=== PATIENT | female | born 1940 | race Caucasian/White ===

== ENCOUNTER → 2018-01-30 13:26 | Outpatient (CLI) | payer MEDICARE, BC, SELFPAY ==
--- NOTE | 2018-01-30 | DI.RAD.S_ITS ---
PROCEDURE: XR LUMBAR SPINE 2-3V INDICATIONS: SPONDYLOLISTHESIS, SPINAL STENOSIS TECHNIQUE: 3 views of the lumbar spine were acquired. COMPARISON: [facility], CR, XR LUMBAR SPINE FLEXION EXTENSION, 08/21/2017, 15:17. [facility], CR, L-SPINE 2-3 VIEWS, 11/06/2012, 16:09. FINDINGS: Bones: Posterior spinal fixation with paraspinal toby and pedicle screws from L3-L5. Residual grade 1 anterolisthesis of L3 on L4 and L4 on L5. There are also interbody cage grafts. Moderate narrowing of the L5-S1 disc space which has minimally progressed. Levocurvature centered at L1-L2. No fracture or focal osseous destruction. Hardware appears intact. There is expected postoperative alignment. Soft tissues: Overlying bowel gas pattern is normal. No suspicious soft tissue calcifications. IMPRESSION: Posterior spinal fixation from L3-L5 with paraspinal rods and pedicle screws, with interbody grafts. Expected postoperative alignment. Levocurvature centered at L1-L2. Dictated by: Jamil Cuellar M.D. on 01/30/2018 at 14:55 Approved by: Jamil Cuellar M.D. on 01/30/2018 at 14:59
== END ==
PROVIDERS: PCP Nurse Practitioner Family; Visit Provider Neurological Surgery
DX: M43.16 Spondylolisthesis, lumbar region (principal); Z98.1 Arthrodesis status
CPT/HCPCS: 72100

== ENCOUNTER → 2018-05-14 14:38 | Outpatient (CLI) | payer MEDICARE, BC, SELFPAY ==
--- NOTE | 2018-05-14 | DI.RAD.S_ITS ---
PROCEDURE: XR LUMBAR SPINE MIN 4V INDICATIONS: Spondylolisthesis, lumbar region TECHNIQUE: 5 views of the lumbar spine acquired, including flexion and extension imaging COMPARISON: [facility], CR, XR LUMBAR SPINE 2-3V, 01/30/2018, 13:14. [facility], CR, L-SPINE 2-3 VIEWS, 11/06/2012, 16:09. FINDINGS: Bones: 5 nonrib-bearing vertebrae are present. Previously present convex leftward scoliosis and grade 1 anterolisthesis of L4 on L5 is again seen. Postoperative changes of L3-L5 bilateral transverse pedicle screws and vertical fixation rods are stable over time from January of this year. Interbody disc cage prosthesis devices are present at L3-4 and L4-5, stable over time. No vertebral body compression fractures. No suspicious bony lesions. Soft tissues: Overlying bowel gas pattern is normal. No suspicious soft tissue calcifications. Flexion/extension: There is normal range of motion, with preserved normal alignment. IMPRESSION: Stable appearance of the lumbosacral spine with reference to the comparison study from January of this year and no abnormal subluxation mobility is seen during flexion and extension imaging. Rather, there is fixed grade one anterolisthesis of L4 on L5 and the bilateral posterior fixation from L3-L5 with interbody disc prosthesis material shows no abnormal mobility either. Dictated by: Juan Giraldo M.D. on 05/14/2018 at 16:28 Approved by: Juan Giraldo M.D. on 05/14/2018 at 16:30
== END ==
PROVIDERS: PCP Nurse Practitioner Family; Visit Provider Neurological Surgery
DX: M43.16 Spondylolisthesis, lumbar region (principal)
CPT/HCPCS: 72110

== ENCOUNTER → 2018-11-20 13:57 | Outpatient (CLI) | payer MEDICARE, SELFPAY ==
--- NOTE | 2018-11-20 | DI.RAD.S_ITS ---
PROCEDURE: XR LUMBAR SPINE 2-3V INDICATIONS: Spinal stenosis, lumbar region without neurogenic claudication TECHNIQUE: 2 views of the lumbar spine were acquired. COMPARISON: [facility], CR, XR LUMBAR SPINE MIN 4V, 05/14/2018, 14:49. [facility], CT, L-SPINE WITHOUT CONTRAST, 10/25/2017, 14:20. [facility], CR, XR LUMBAR SPINE 2-3V, 01/30/2018, 13:14. FINDINGS: Bones: 5 [id number]-[id number] vertebrae are present. There is [id number] levoscoliosis. There is grade 1 anterolisthesis of L3 on L4 and grade 2 anterolisthesis of L4 on L5. There is discectomy and posterior fusion at L3-L4 and L4-L5. Pedicular screws and fusion rods are intact. Alignment appears stable. No vertebral body compression fractures. No suspicious bony lesions. Soft tissues: Overlying bowel gas pattern is normal. No suspicious soft tissue calcifications. IMPRESSION: Stable degenerative and post surgical changes. Dictated by: Kenny Denise M.D. on 11/20/2018 at 17:08 Approved by: Kenny Denise M.D. on 11/20/2018 at 17:13
== END ==
PROVIDERS: PCP Nurse Practitioner Family; Visit Provider Neurological Surgery
DX: M48.061 Spinal stenosis, lumbar region without neurogenic claudication (principal); M43.16 Spondylolisthesis, lumbar region; M47.816 Spondylosis without myelopathy or radiculopathy, lumbar region; Z98.1 Arthrodesis status
CPT/HCPCS: 72100

== ENCOUNTER → 2019-02-15 14:19 | Outpatient (CLI) | payer MEDICARE, SELFPAY ==
--- NOTE | 2019-02-15 | DI.MG.S_ITS ---
BILATERAL DIGITAL SCREENING MAMMOGRAM 3D/2D WITH CAD: 02/15/2019 CLINICAL: Routine screening. Comparison is made to exams dated: 03/02/2010 mammogram and 11/06/2007 mammogram - [facility]. The tissue of both breasts is heterogeneously dense. This may lower the sensitivity of mammography. Current study was also evaluated with a Computer Aided Detection (CAD) system. No significant masses, calcifications, or other findings are seen in either breast. There has been no significant interval change. IMPRESSION: NEGATIVE There is no mammographic evidence of malignancy. A 1 year screening mammogram is recommended. This exam was interpreted at Station ID: [id number]. NOTE: For mammograms, a report in lay terms will be sent to the patient. Approximately 15% of breast malignancies will not be visualized mammographically. In the management of a palpable breast mass, a negative mammogram must not discourage biopsy of a clinically suspicious lesion. Electronically Signed By: Elin schmidt/scarlett:02/15/2019 17:13:07 letter sent: Normal Exam ACR BI-RADS Category 1: Negative 3341F
--- NOTE | 2019-02-15 14:29 | DI.CT.S_ITS ---
PROCEDURE: CT ABDOMEN PELVIS WO/W CON INDICATIONS: HEMATURIA TECHNIQUE: Optional 5 mm thick noncontrast images acquired from the diaphragm to the symphysis pubis. After the administration of intravenous contrast, 5 mm thick images acquired from the diaphragm to the symphysis pubis after a 10-minute delay. 2 mm thick coronal and sagittal reformats were then performed of the kidneys and ureters. For radiation dose reduction, the following was used: automated exposure control, adjustment of mA and/or kV according to patient size. COMPARISON: [facility], CR, XR LUMBAR SPINE 2-3V, 11/20/2018, 14:12. [facility], CT, L-SPINE WITHOUT CONTRAST, 10/25/2017, 14:20. [facility], CR, XR LUMBAR SPINE FLEXION EXTENSION, 08/21/2017, 15:17. [facility], MR, L-SPINE WITHOUT CONTRAST, 08/14/2017, 15:02. FINDINGS: Image quality: Excellent. Lung bases: Lung bases are clear. Heart size is normal. Urinary system: Both kidneys are normal in size, without hydronephrosis or nephrolithiasis. No perinephric fat stranding. There is normal bilateral renal enhancement. Small low density cortical nodules are most likely renal cysts. Renal calyces appear normal in morphology when filled with contrast. Opacified portions of both ureters demonstrate normal caliber. There is mild eccentric thickening in the right anterolateral wall of the urinary bladder.. No calcified bladder stones. Other solid organs: Liver is normal in size and enhancement. Gallbladder is normal. Biliary system is non dilated. Pancreas enhances normally. Spleen is normal in size and enhancement. No adrenal nodules. Peritoneum and bowel: Bowel loops demonstrate normal wall thickness and caliber. No free fluid or air. Nodes and vessels: No retroperitoneal or mesenteric adenopathy by size criteria. Aorta and inferior vena cava are normal in size. Abdominal wall: No ventral hernias. Pelvis: No pathologic free pelvic fluid. No inguinal hernias or adenopathy. Bones: Mild scoliosis. There is grade 1 anterolisthesis at L3-L4 and L5-L5. There is discectomy, laminectomy and posterior fusion at L3-L4 and L4-L5. There is moderate loss of disc height at L5-S1. No suspicious bony lesions. No vertebral body compression fractures. IMPRESSION: 1. Mild eccentric thickening in the right anterolateral aspect of the bladder wall. In this patient with painless microscopic hematuria, uroepithelial neoplasm cannot be excluded. Recommend cystoscopy for evaluation. 2. No renal stone hydronephrosis. 3. Small low density renal cortical nodules are most likely cysts. 4. Degenerative and postsurgical changes in lumbar spine. Dictated by: Kenny Denise M.D. on 02/15/2019 at 15:53 Approved by: Kenny Denise M.D. on 02/15/2019 at 17:50
== END ==
PROVIDERS: PCP Family Medicine; Visit Provider Family Medicine
DX: Z12.31 Encounter for screening mammogram for malignant neoplasm of breast (principal); R31.9 Hematuria, unspecified; M47.816 Spondylosis without myelopathy or radiculopathy, lumbar region; Z98.1 Arthrodesis status
CPT/HCPCS: 74178; 77063; 77067; Q9967

== ENCOUNTER → 2020-05-27 15:37 | Outpatient (CLI) | payer MEDICARE, SELFPAY ==
--- NOTE | 2020-05-27 | DI.MRI.S_ITS ---
PROCEDURE: MR LUMBAR SPINE WO/W CON INDICATIONS: Spinal stenosis, lumbar region TECHNIQUE: Noncontrast sagittal T1 spin echo and T2 fast spin echo, sagittal STIR, axial T1 and T2 fast spin echo through the lumbar spine. In cases with scoliosis, additional coronal T2 fast spin echo may be performed. After the administration of contrast, sagittal and axial T1 spin echo with fat saturation through the lumbar spine. COMPARISON: [facility], MR, L-SPINE WITHOUT CONTRAST, 08/14/2017, 15:02. [facility], CT, L-SPINE WITHOUT CONTRAST, 10/25/2017, 14:20. [facility], CR, XR LUMBAR SPINE 2-3V, 11/20/2018, 14:12. FINDINGS: Image quality: Excellent. Alignment and curvature: There is trace L2-L3 retrolisthesis. There is mild L3-L4 and L4-L5 anterolisthesis. Mild convex left scoliosis. Bones: Postsurgical changes compatible with L3-L5 PSIF. Mild reactive endplate changes noted adjacent to the L5-S1 disc. No acute vertebral body compression fractures. No suspicious marrow enhancement. Spinal cord: Conus medullaris terminates at the L1 level. Visualized spinal cord demonstrates normal signal, without suspicious enhancement. Paraspinous soft tissues: No paravertebral masses or abnormal enhancement. L1-L2: Loss of disc signal and height. Mild, diffuse disc bulge. Mild narrowing of the central canal. Mild bilateral neural foraminal narrowing. No neural compression. L2-L3: Loss of disc signal and height. Mild, diffuse disc bulge. Mild bilateral facet hypertrophy. Mild narrowing of the central canal. Mild bilateral neural foraminal narrowing. No neural compression. Fissure noted in the posterior annulus. L3-L4: Status post fusion. Bilateral facet hypertrophy. No central stenosis. Mild left neural foraminal narrowing. No neural compression. L4-L5: Status post fusion. Bilateral facet hypertrophy. No central stenosis. Severe bilateral neural foraminal narrowing with compression of the exiting L4 nerve roots. L5-S1: Loss of disc signal and height. Mild, diffuse disc bulge. Mild bilateral facet hypertrophy. Mild narrowing of the central canal. Moderate right and severe left neural foraminal narrowing with compression of the exiting left L5 nerve root. Fissures noted in the posterior annulus. IMPRESSION: 1. Status post L3-L5 fusion. 2. Multilevel degenerative disc disease. 3. Multilevel facet arthropathy. 4. Severe bilateral L4-L5 neural foraminal narrowing with compression of the exiting bilateral L4 nerve roots. Severe left L5-S1 neural foraminal narrowing with compression of the exiting left L5 nerve root. 5. L2-L3 and L5-S1 disc annulus fissures. 6. No significant central canal narrowing. 7. No suspicious postcontrast enhancement. Dictated by: Sarah Rascon MD, PhD on 05/28/2020 at 11:25 Approved by: Sarah Rascon MD, PhD on 05/28/2020 at 11:35
== END ==
PROVIDERS: Referring Provider Family Medicine; Visit Provider Family Medicine
DX: M48.062 Spinal stenosis, lumbar region with neurogenic claudication (principal); M48.07 Spinal stenosis, lumbosacral region; M51.36 Other intervertebral disc degeneration, lumbar region; M51.37 Other intervertebral disc degeneration, lumbosacral region; M47.816 Spondylosis without myelopathy or radiculopathy, lumbar region; M47.817 Spondylosis without myelopathy or radiculopathy, lumbosacral region; Z98.1 Arthrodesis status
CPT/HCPCS: 72158; A9579

== ENCOUNTER → 2020-07-03 15:03 | Outpatient (CLI) | payer MEDICARE, SELFPAY ==
--- NOTE | 2020-07-03 15:08 | DI.MG.S_ITS ---
BILATERAL DIGITAL SCREENING MAMMOGRAM 3D/2D WITH CAD: 07/03/2020 CLINICAL: Routine screening. Comparison is made to exams dated: 02/15/2019 mammogram - [facility], 03/02/2010 mammogram, and 11/06/2007 mammogram - [facility]. The tissue of both breasts is heterogeneously dense. This may lower the sensitivity of mammography. Current study was also evaluated with a Computer Aided Detection (CAD) system. No significant masses, calcifications, or other findings are seen in either breast. There has been no significant interval change. IMPRESSION: NEGATIVE There is no mammographic evidence of malignancy. A 1 year screening mammogram is recommended. This exam was interpreted at Station ID: [id number]. NOTE: For mammograms, a report in lay terms will be sent to the patient. Approximately 15% of breast malignancies will not be visualized mammographically. In the management of a palpable breast mass, a negative mammogram must not discourage biopsy of a clinically suspicious lesion. Electronically Signed By: Johnny cormier/scarlett:07/03/2020 17:09:40 letter sent: Normal Exam ACR BI-RADS Category 1: Negative 3341F
== END ==
PROVIDERS: PCP Family Medicine; Referring Provider Family Medicine; Visit Provider Family Medicine
DX: Z12.31 Encounter for screening mammogram for malignant neoplasm of breast (principal); M81.0 Age-related osteoporosis without current pathological fracture; Z78.0 Asymptomatic menopausal state; Z79.83 Long term (current) use of bisphosphonates; Z82.62 Family history of osteoporosis
CPT/HCPCS: 77063; 77067; 77080

== ENCOUNTER → 2020-12-16 12:10 | Outpatient (CLI) | payer MEDICARE, SELFPAY ==
[2020-12-16 19:56] LABS: Albumin 3.9 g/dL (3.5-5.0); Calcium 10.4 mg/dL (8.4-10.2)
[2020-12-16 20:14] LABS: Vitamin D 25 Hydroxy (D3) 27.5 ng/mL (30.0-100.0)
== END ==
PROVIDERS: PCP Family Medicine; Visit Provider Internal Medicine Endocrinology, Diabetes & Metabolism
DX: M81.0 Age-related osteoporosis without current pathological fracture (principal)
CPT/HCPCS: 82040; 82306; 82310

== ENCOUNTER → 2021-03-08 12:01 | Outpatient (CLI) | payer MEDICARE, SELFPAY ==
[2021-03-08 19:08] LABS: BUN Creatinine Ratio 25.5 (6-22); Blood Urea Nitrogen 14 mg/dL (7-17); Estimated Glomerular Filt Rate > 60.0 mL/min (>60)
== END ==
PROVIDERS: PCP Family Medicine; Visit Provider Family Medicine
DX: R30.0 Dysuria (principal); R05 Cough
CPT/HCPCS: 82565; 84520; 87077; 87086; 87186

== ENCOUNTER → 2021-03-16 11:57 | Outpatient (CLI) | payer MEDICARE, SELFPAY | PROVIDERS: PCP Family Medicine; Visit Provider Family Medicine | DX: R30.0 Dysuria (principal); R31.9 Hematuria, unspecified | CPT/HCPCS: 87086 ==

== ENCOUNTER → 2021-03-17 15:08 | Outpatient (CLI) | payer MEDICARE, SELFPAY ==
--- NOTE | 2021-03-17 15:09 | DI.CT.S_ITS ---
PROCEDURE: CT CHEST W CON INDICATIONS: Localized swelling, mass and lump, trunk. Chest Mass, Gammopathy, monoclonal. The clinical history appears to indicate that a whole-body low radiation dosed survey for myeloma had been performed and had raised concern for some form of soft tissue abnormality. A report from that study and the images from that study are not available for review. TECHNIQUE: After the administration of intravenous contrast, 5 mm thick sections acquired from the pulmonary apices to the posterior costophrenic angles. 1 mm axial lung, 5 mm thick coronal and sagittal reformats and 7 mm axial MIP were acquired. For radiation dose reduction, the following was used: automated exposure control, adjustment of mA and/or kV according to patient size. COMPARISON: [facility], CT, CT ABDOMEN PELVIS WO/W CON, 02/15/2019, 14:38. FINDINGS: Image quality: Excellent. Lungs and pleura: No acute air space opacities. No pleural effusions or pneumothorax. Central and peripheral airways are patent and normal in caliber. Mediastinum: Heart size is normal. No pericardial effusion. No mediastinal or hilar adenopathy by size criteria. Thoracic aorta and central pulmonary arteries are normal in size. Esophagus is normal in caliber. No hiatal hernia. Bones and chest wall: No suspicious bony lesions. No vertebral body compression fractures. No axillary or supraclavicular adenopathy by size criteria. Thyroid gland appears normal where well seen . Abdomen: Visualized upper abdominal solid organs appear normal. Upper abdominal bowel loops are normal in caliber. IMPRESSION: No soft tissue lesion is found, no adenopathy is seen. The marrow space visualized through this study appears normal. It would be helpful to obtain at least a report from the described outside examination that is not available for review. Ideally both a report and the images could be obtained and reviewed with reference to this study to attempt to cross correlate the area of prior concern to the current examination. Dictated by: Juan Giraldo M.D. on 03/17/2021 at 17:01 Approved by: Juan Giraldo M.D. on 03/17/2021 at 17:08
== END ==
PROVIDERS: PCP Family Medicine; Referring Provider Family Medicine; Visit Provider Family Medicine
DX: R22.2 Localized swelling, mass and lump, trunk (principal); D47.2 Monoclonal gammopathy
CPT/HCPCS: 71260; Q9967

== ENCOUNTER → 2021-04-12 08:38 | Outpatient (CLI) | payer MEDICARE, SELFPAY ==
[2021-04-12 21:08] LABS: COVID19 - ORCAS (NP or Nasal) Negative (Negative)
== END ==
PROVIDERS: PCP Family Medicine; Visit Provider Family Medicine
DX: Z20.822 Contact with and (suspected) exposure to COVID-19 (principal)
CPT/HCPCS: C9803; U0003

== ENCOUNTER → 2021-04-26 13:43 | Outpatient (CLI) | payer MEDICARE, SELFPAY ==
[2021-04-26 20:00] LABS: BUN Creatinine Ratio 35.3 (6-22); Blood Urea Nitrogen 18 mg/dL (7-17); Calcium 10.4 mg/dL (8.4-10.2); Carbon Dioxide 29 mmol/L (22-32); Chloride 96 mmol/L (98-107); Estimated Glomerular Filt Rate > 60.0 mL/min (>60); Glucose 98 mg/dL (80-110); HEMOLYSIS < 15 (0-50); Potassium 4.1 mmol/L (3.4-5.1); Sodium 129 mmol/L (137-145)
[2021-04-26 20:16] LABS: Vitamin D 25 Hydroxy (D3) 49.2 ng/mL (30.0-100.0)
== END ==
PROVIDERS: PCP Family Medicine; Visit Provider Internal Medicine Endocrinology, Diabetes & Metabolism
DX: M81.0 Age-related osteoporosis without current pathological fracture (principal)
CPT/HCPCS: 80048; 82306

== ENCOUNTER → 2021-06-03 13:31 | Outpatient (CLI) | payer MEDICARE, SELFPAY ==
[2021-06-03 18:41] LABS: Alanine Aminotransferase 16 IU/L (<35); Albumin 4.2 g/dL (3.5-5.0); Albumin Globulin Ratio 1.4 (1.0-2.8); Alkaline Phosphatase 86 U/L (38-126); Aspartate Aminotransferase 32 IU/L (14-36); Bilirubin Total 0.6 mg/dL (0.2-1.3); Blood Urea Nitrogen 18 mg/dL (7-17); Calcium 10.7 mg/dL (8.4-10.2); Carbon Dioxide 29 mmol/L (22-32); Chloride 95 mmol/L (98-107); Estimated Glomerular Filt Rate > 60.0 mL/min (>60); Glucose 88 mg/dL (80-110); HEMOLYSIS < 15 (0-50); Potassium 4.2 mmol/L (3.4-5.1); Sodium 132 mmol/L (137-145); Total Protein 7.2 g/dL (6.3-8.2)
[2021-06-07 14:34] LABS: Osmolality, Serum 281 mOsmol/kg (280-301)
== END ==
PROVIDERS: PCP Family Medicine; Visit Provider Physician Assistant
DX: B35.1 Tinea unguium (principal); E87.1 Hypo-osmolality and hyponatremia
CPT/HCPCS: 80053; 83930

== ENCOUNTER → 2021-09-10 13:42 | Outpatient (CLI) | payer MEDICARE, SELFPAY ==
[2021-09-10 19:04] LABS: Add Manual Diff / Slide Review NO; Basophils Absolute Auto 100 /uL (0-100); Basophils Percent Auto 1.2 % (0-2); Eosinophils Absolute Auto 100 /uL (0-450); Eosinophils Percent Auto 2.6 % (2-4); Hematocrit 33.9 % (36-46); Hemoglobin 11.5 g/dL (12.0-16.0); Lymphocytes Absolute Auto 1700 /uL (1100-4500); Lymphocytes Percent Auto 35.3 % (25-40); Mean Corpuscular HGB Conc 33.8 % (30-36); Mean Corpuscular Hemoglobin 32.8 PG (26-34); Mean Corpuscular Volume 97.1 fL (80-100); Monocytes Absolute Auto 800 /uL (0-900); Monocytes Percent Auto 15.5 % (3-14); Neutrophils Absolute Auto 2200 /uL (1500-7000); Neutrophils Percent Auto 45.4 % (50-75); Platelet Count 236 X10^3/uL (150-400); Red Blood Cell Count 3.49 X10^6/uL (4.0-5.2); Red Cell Distribution Width 14.4 % (11.6-14.8); White Blood Cell Count 4.9 X10^3/uL (4.5-11.0)
[2021-09-10 19:12] LABS: Alanine Aminotransferase 21 IU/L (<35); Albumin 3.8 g/dL (3.5-5.0); Albumin Globulin Ratio 1.3 (1.0-2.8); Alkaline Phosphatase 87 U/L (38-126); Aspartate Aminotransferase 32 IU/L (14-36); BUN Creatinine Ratio 35.1 (6-22); Bilirubin Total 0.5 mg/dL (0.2-1.3); Blood Urea Nitrogen 27 mg/dL (7-17); Calcium 10.9 mg/dL (8.4-10.2); Carbon Dioxide 31 mmol/L (22-32); Chloride 102 mmol/L (98-107); Estimated Glomerular Filt Rate > 60.0 mL/min (>60); Glucose 83 mg/dL (80-110); HEMOLYSIS < 15 (0-50); Potassium 4.2 mmol/L (3.4-5.1); Sodium 134 mmol/L (137-145); Total Protein 6.8 g/dL (6.3-8.2)
[2021-09-10 19:20] LABS: Appearance Urine UA CLEAR; Bilirubin Urine UA NEGATIVE (NEGATIVE); Color Urine UA YELLOW; Glucose Urine UA NEGATIVE (Negative); Ketones Urine UA NEGATIVE (NEGATIVE); Leukocyte Esterase Urine UA TRACE (NEGATIVE); Nitrite Urine UA NEGATIVE (Negative); Occult Blood Urine UA 3+ (Negative); Protein Urine UA NEGATIVE (Negative); Urobilinogen Urine UA 0.2 E.U./dL (0.2)
[2021-09-10 19:24] LABS: Sodium Urine Random 36 mmol/L (30-90)
[2021-09-10 19:26] LABS: Vitamin D 25 Hydroxy (D3) 29.4 ng/mL (30.0-100.0)
[2021-09-10 19:45] LABS: pH Urine UA 6.5 (4.5-8.0)
[2021-09-10 19:46] LABS: Bacteria Urine Occasional (0-1); Culture Indicated Urine Specimen Cultured; RBC Urine 10-30/HPF (0-5/HPF); Squamous Epithelial Cell Urine 1-5 /HPF (0-5/HPF); Transitional Epi Cells Urine 1-5/HPF (0-5/HPF); WBC Urine 1-5/HPF (0-5/HPF)
[2021-09-13 17:44] LABS: Osmolality Urine 549 mOsmol/kg (.)
== END ==
PROVIDERS: PCP Physician Assistant; Visit Provider Internal Medicine Endocrinology, Diabetes & Metabolism
DX: M81.0 Age-related osteoporosis without current pathological fracture (principal); E87.1 Hypo-osmolality and hyponatremia; R05.9 Cough, unspecified; R54 Age-related physical debility
CPT/HCPCS: 80053; 81003; 81015; 82306; 83935; 84300; 85025; 87086

== ENCOUNTER → 2021-11-01 13:08 | Outpatient (CLI) | payer MEDICARE, SELFPAY ==
[2021-11-01 19:34] LABS: Add Manual Diff / Slide Review NO; Basophils Absolute Auto 100 /uL (0-100); Basophils Percent Auto 1.2 % (0-2); Eosinophils Absolute Auto 100 /uL (0-450); Eosinophils Percent Auto 1.4 % (2-4); Hematocrit 34.3 % (36-46); Hemoglobin 11.6 g/dL (12.0-16.0); Lymphocytes Absolute Auto 1700 /uL (1100-4500); Lymphocytes Percent Auto 32.4 % (25-40); Mean Corpuscular HGB Conc 33.7 % (30-36); Mean Corpuscular Hemoglobin 33.1 PG (26-34); Mean Corpuscular Volume 98.1 fL (80-100); Monocytes Absolute Auto 800 /uL (0-900); Monocytes Percent Auto 14.1 % (3-14); Neutrophils Absolute Auto 2700 /uL (1500-7000); Neutrophils Percent Auto 50.9 % (50-75); Platelet Count 195 X10^3/uL (150-400); Red Cell Distribution Width 13.3 % (11.6-14.8); White Blood Cell Count 5.4 X10^3/uL (4.5-11.0)
[2021-11-01 19:47] LABS: Alanine Aminotransferase 22 IU/L (<35); Albumin 4.2 g/dL (3.5-5.0); Albumin Globulin Ratio 1.4 (1.0-2.8); Alkaline Phosphatase 91 U/L (38-126); Aspartate Aminotransferase 37 IU/L (14-36); BUN Creatinine Ratio 36.5 (6-22); Bilirubin Total 0.5 mg/dL (0.2-1.3); Blood Urea Nitrogen 31 mg/dL (7-17); Calcium 10.7 mg/dL (8.4-10.2); Carbon Dioxide 28 mmol/L (22-32); Chloride 98 mmol/L (98-107); Estimated Glomerular Filt Rate > 60.0 mL/min (>60); Glucose 75 mg/dL (80-110); HEMOLYSIS < 15 (0-50); Lactate Dehydrogenase 412 U/L (313-618); Potassium 4.2 mmol/L (3.4-5.1); Sodium 131 mmol/L (137-145); Total Protein 7.2 g/dL (6.3-8.2)
[2021-11-03 22:24] LABS: Free Kappa Lt Chains, Serum 33.9 mg/L (3.3-19.4)
[2021-11-04 15:23] LABS: Albumin 3.6 g/dL (2.9-4.4); Alpha-1-Globulin 0.3 g/dL (0.0-0.4); Alpha-2-Globulin 0.7 g/dL (0.4-1.0); Gamma Globulin 1.1 g/dL (0.4-1.8); Globulin Total 2.9 g/dL (2.2-3.9); Immunoglobulin A, Serum 135 mg/dL (64-422); Immunoglobulin G,Serum 1163 mg/dL (586-1602); Immunoglobulin M, Serum 54 mg/dL (26-217); Protein, Total 6.5 g/dL (6.0-8.5)
== END ==
PROVIDERS: PCP Physician Assistant; Visit Provider Internal Medicine Hematology & Oncology
DX: D47.2 Monoclonal gammopathy (principal)
CPT/HCPCS: 80053; 82784; 83615; 83883; 84155; 84165; 85025; 86334

== ENCOUNTER → 2021-12-02 11:44 | Outpatient (CLI) | payer MEDICARE, SELFPAY ==
[2021-12-02 18:40] LABS: Add Manual Diff / Slide Review NO; Basophils Absolute Auto 100 /uL (0-100); Basophils Percent Auto 1.5 % (0-2); Eosinophils Absolute Auto 100 /uL (0-450); Eosinophils Percent Auto 2.6 % (2-4); Hematocrit 33.7 % (36-46); Hemoglobin 11.7 g/dL (12.0-16.0); Lymphocytes Absolute Auto 1700 /uL (1100-4500); Lymphocytes Percent Auto 32.7 % (25-40); Mean Corpuscular HGB Conc 34.7 % (30-36); Mean Corpuscular Hemoglobin 33.8 PG (26-34); Mean Corpuscular Volume 97.4 fL (80-100); Monocytes Absolute Auto 700 /uL (0-900); Monocytes Percent Auto 14.4 % (3-14); Neutrophils Absolute Auto 2500 /uL (1500-7000); Neutrophils Percent Auto 48.8 % (50-75); Platelet Count 204 X10^3/uL (150-400); Red Blood Cell Count 3.46 X10^6/uL (4.0-5.2); Red Cell Distribution Width 13.3 % (11.6-14.8); White Blood Cell Count 5.2 X10^3/uL (4.5-11.0)
[2021-12-02 19:07] LABS: BUN Creatinine Ratio 31.6 (6-22); Blood Urea Nitrogen 25 mg/dL (7-17); Calcium 10.2 mg/dL (8.4-10.2); Carbon Dioxide 25 mmol/L (22-32); Chloride 101 mmol/L (98-107); Estimated Glomerular Filt Rate > 60 mL/min (>60); Glucose 71 mg/dL (80-110); HEMOLYSIS < 15 (0-50); Potassium 4.1 mmol/L (3.4-5.1); Sodium 135 mmol/L (137-145)
[2021-12-02 19:18] LABS: Vitamin D 25 Hydroxy (D3) 50.4 ng/mL (30.0-100.0)
[2021-12-02 19:26] LABS: Alanine Aminotransferase 18 IU/L (<35); Albumin 4.3 g/dL (3.5-5.0); Albumin Globulin Ratio 1.5 (1.0-2.8); Alkaline Phosphatase 101 U/L (38-126); Aspartate Aminotransferase 34 IU/L (14-36); BUN Creatinine Ratio 31.3 (6-22); Bilirubin Total 0.6 mg/dL (0.2-1.3); Blood Urea Nitrogen 25 mg/dL (7-17); Calcium 10.5 mg/dL (8.4-10.2); Carbon Dioxide 26 mmol/L (22-32); Chloride 102 mmol/L (98-107); Estimated Glomerular Filt Rate > 60 mL/min (>60); Globulin 2.9 g/dL (1.7-4.1); Glucose 66 mg/dL (80-110); HEMOLYSIS < 15 (0-50); Sodium 135 mmol/L (137-145); Total Protein 7.2 g/dL (6.3-8.2)
[2021-12-02 19:29] LABS: HEMOLYSIS < 15 (0-50); Iron 160 ug/dL (37-170)
[2021-12-02 19:43] LABS: Percent Iron Saturation 50 % (15-50); Total Iron Binding Capacity 323 ug/dL (265-497); Transferrin 254 mg/dL (206-381)
[2021-12-02 19:55] LABS: Ferritin 39 ng/mL (11-264)
[2021-12-02 20:09] LABS: Vitamin B12 512 pg/mL (239-931)
== END ==
PROVIDERS: PCP Physician Assistant; Visit Provider Internal Medicine Endocrinology, Diabetes & Metabolism
DX: M81.0 Age-related osteoporosis without current pathological fracture (principal); D64.9 Anemia, unspecified; E87.1 Hypo-osmolality and hyponatremia
CPT/HCPCS: 80048; 80053; 82306; 82607; 82728; 83540; 83550; 85025

== ENCOUNTER → 2021-12-10 13:05 | Outpatient (CLI) | payer MEDICARE, SELFPAY ==
[2021-12-10 18:33] LABS: Albumin 4.4 g/dL (3.5-5.0); BUN Creatinine Ratio 28.6 (6-22); Blood Urea Nitrogen 20 mg/dL (7-17); Calcium 10.2 mg/dL (8.4-10.2); Carbon Dioxide 24 mmol/L (22-32); Chloride 100 mmol/L (98-107); Estimated Glomerular Filt Rate > 60 mL/min (>60); Glucose 104 mg/dL (80-110); HEMOLYSIS < 15 (0-50); Potassium 4.3 mmol/L (3.4-5.1); Sodium 133 mmol/L (137-145)
[2021-12-10 19:03] LABS: TSH w/ Reflex to FT4 2.86 uIU/mL (0.47-4.68)
[2021-12-11 07:36] LABS: Parathyroid Hormone Int 94 pg/mL (15-65)
== END ==
PROVIDERS: PCP Physician Assistant; Visit Provider Internal Medicine Endocrinology, Diabetes & Metabolism
DX: M81.0 Age-related osteoporosis without current pathological fracture (principal)
CPT/HCPCS: 80069; 83970; 84443

== ENCOUNTER → 2022-01-25 08:09 | Outpatient (CLI) | payer MEDICARE, SELFPAY ==
--- NOTE | 2022-01-25 08:16 | DI.CT.S_ITS ---
PROCEDURE: CT CHEST W CON INDICATIONS: ROUTINE SCREENING/FOLLOW UP PULMONARY NODULE TECHNIQUE: After the administration of intravenous contrast, 5 mm thick sections acquired from the pulmonary apices to the posterior costophrenic angles. 1 mm axial lung, 5 mm thick coronal and sagittal reformats and 7 mm axial MIP were acquired. For radiation dose reduction, the following was used: automated exposure control, adjustment of mA and/or kV according to patient size. COMPARISON: [facility], RG, CT MULTIPLE MYELOMA SCREENING, 10/08/2020, 15:40. [facility], CT, CT ABDOMEN PELVIS WO/W CON, 02/15/2019, 14:38. [facility], CT, CT CHEST W CON, 03/17/2021, 15:30. FINDINGS: Image quality: Excellent. Lungs and pleura: No acute air space opacities. There is mild peripheral interlobular septal thickening in the upper lungs bilaterally suggesting early fibrotic changes. A 5 mm an adjacent 8 mm pulmonary nodule are unchanged when compared with the CT dated October 08, 2020. No new pulmonary nodules. No pleural effusions or pneumothorax. Central and peripheral airways are patent and normal in caliber. Mediastinum: Heart size is normal. No pericardial effusion. No mediastinal or hilar adenopathy by size criteria. Thoracic aorta and central pulmonary arteries are normal in size. Esophagus is normal in caliber. No hiatal hernia. Bones and chest wall: No suspicious bony lesions. No vertebral body compression fractures. No axillary or supraclavicular adenopathy by size criteria. Thyroid gland is unremarkable . Abdomen: Visualized upper abdominal solid organs appear normal. Upper abdominal bowel loops are normal in caliber. IMPRESSION: 1. Stable right lower lobe 5 and 8 mm pulmonary nodules when compared with the CT dated October 08, 2020. Follow-up CT in 6-12 months recommended. Please see follow-up guidelines below. 2. No new pulmonary nodules or acute airspace opacities. Fleischner Society criteria for SOLID lung nodule followup. Nodule size (mm)Low-risk patientHigh-risk patient<6 (single or multiple)No routine followup.Optional CT at 12 months. 6-8 (single or multiple)CT at 6-12 months, then optional CT at 18-24 mo.CT at 6-12 months, then CT at 18-24 months. >8 (single)CT at 3 months, PET-CT, or biopsy. Same as for low-risk pts. >8 (multiple)CT at 3-6 months, then optional CT at 18-24 mo.CT at 3-6 months, then CT at 18-24 months. Fleischner Society criteria for SUB-SOLID lung nodule followup. Solitary pure ground-glass nodules<6 mm (ground glass or part solid)No followup needed. 6 mm or larger (ground glass)CT at 6-12 months to confirm persistence, then CT every 2 years until 5 years.6 mm or larger (part solid)CT at 3-6 months to confirm persistence, then annual CT until 5 years if unchanged and solid component remains <6 mm. Multiple sub-solid nodules<6 mmCT at 3-6 months, then CT consider at 2 & 4 years for high risk patients. [address] at 3-6 months. Subsequent management based on most suspicious lesions. Recommendations do not apply to lung cancer screening, patients with immunosuppression, or patients with known primary cancer. Dictated by: Lanette Humphrey M.D. on 01/25/2022 at 9:35 Approved by: Lanette Humphrey M.D. on 01/25/2022 at 9:41
--- NOTE | 2022-01-25 08:16 | DI.MG.S_ITS ---
BILATERAL DIGITAL SCREENING MAMMOGRAM 3D/2D WITH CAD: 01/25/2022 CLINICAL: Routine screening. Comparison is made to exams dated: 07/03/2020 mammogram, 02/15/2019 mammogram - [facility], and 03/02/2010 mammogram - [facility]. The tissue of both breasts is extremely dense, which lowers the sensitivity of mammography. Current study was also evaluated with a Computer Aided Detection (CAD) system. No significant masses, calcifications, or other findings are seen in either breast. There has been no significant interval change. IMPRESSION: NEGATIVE There is no mammographic evidence of malignancy. A 1 year screening mammogram is recommended. Based on the Tyrer Cuzick model (a risk assessment model) the patient's lifetime risk is 4.4% and her 10 year risk is 0.0%. According to the ACR, ACS, and NCCN guidelines, an annual breast MRI exam along with mammogram is recommended if the patient's lifetime risk is 20% or greater. This exam was interpreted at Station ID: [id number]. NOTE: For mammograms, a report in lay terms will be sent to the patient. Approximately 15% of breast malignancies will not be visualized mammographically. In the management of a palpable breast mass, a negative mammogram must not discourage biopsy of a clinically suspicious lesion. Electronically Signed By: Lanette conklin/scarlett:01/25/2022 17:11:52 copy to: JACE TOVAR letter sent: Normal Exam ACR BI-RADS Category 1: Negative 3341F
[2022-01-25 08:48] LABS: Alanine Aminotransferase 18 IU/L (<35); Albumin 4.1 g/dL (3.5-5.0); Albumin Globulin Ratio 1.4 (1.0-2.8); Alkaline Phosphatase 78 U/L (38-126); Aspartate Aminotransferase 32 IU/L (14-36); BUN Creatinine Ratio 37.1 (6-22); Bilirubin Total 0.6 mg/dL (0.2-1.3); Blood Urea Nitrogen 23 mg/dL (7-17); Calcium 9.5 mg/dL (8.4-10.2); Carbon Dioxide 28 mmol/L (22-32); Chloride 104 mmol/L (98-107); Estimated Glomerular Filt Rate > 60 mL/min (>60); Glucose 84 mg/dL (80-110); HEMOLYSIS < 15 (0-50); Potassium 4.2 mmol/L (3.4-5.1); Sodium 135 mmol/L (137-145); Total Protein 7.1 g/dL (6.3-8.2)
[2022-01-25 09:23] LABS: Ferritin 22 ng/mL (11-264)
[2022-01-25 09:45] LABS: Add Manual Diff / Slide Review NO; Basophils Absolute Auto 0 /uL (0-100); Basophils Percent Auto 0.8 % (0-2); Eosinophils Absolute Auto 100 /uL (0-450); Eosinophils Percent Auto 1.9 % (2-4); Hematocrit 34.8 % (36-46); Lymphocytes Absolute Auto 1300 /uL (1100-4500); Lymphocytes Percent Auto 22.1 % (25-40); Mean Corpuscular HGB Conc 34.4 % (30-36); Mean Corpuscular Hemoglobin 33.7 PG (26-34); Monocytes Absolute Auto 800 /uL (0-900); Neutrophils Absolute Auto 3700 /uL (1500-7000); Neutrophils Percent Auto 61.2 % (50-75); Platelet Count 181 X10^3/uL (150-400); Red Blood Cell Count 3.55 X10^6/uL (4.0-5.2); Red Cell Distribution Width 13.6 % (11.6-14.8)
== END ==
PROVIDERS: PCP Physician Assistant; Referring Provider Family Medicine; Visit Provider Family Medicine
DX: Z12.31 Encounter for screening mammogram for malignant neoplasm of breast (principal); R91.8 Other nonspecific abnormal finding of lung field; D47.2 Monoclonal gammopathy; D64.9 Anemia, unspecified; R05.1 Acute cough; E87.1 Hypo-osmolality and hyponatremia
CPT/HCPCS: 36415; 71260; 77063; 77067; 80053; 82728; 85025

== ENCOUNTER → 2022-03-01 10:37 | Outpatient (CLI) | payer MEDICARE, SELFPAY ==
[2022-03-01 20:34] LABS: Albumin 4.1 g/dL (3.5-5.0); BUN Creatinine Ratio 35.6 (6-22); Blood Urea Nitrogen 21 mg/dL (7-17); Calcium 10.1 mg/dL (8.4-10.2); Carbon Dioxide 29 mmol/L (22-32); Chloride 102 mmol/L (98-107); Estimated Glomerular Filt Rate > 60 mL/min (>60); Glucose 82 mg/dL (80-110); HEMOLYSIS < 15 (0-50); Phosphorous 3.1 mg/dL (2.8-4.1); Potassium 4.2 mmol/L (3.4-5.1); Sodium 137 mmol/L (137-145)
[2022-03-01 20:58] LABS: TSH w/ Reflex to FT4 2.86 uIU/mL (0.47-4.68)
[2022-03-03 07:39] LABS: Parathyroid Hormone Int 100 pg/mL (15-65)
== END ==
PROVIDERS: PCP Physician Assistant; Visit Provider Internal Medicine Endocrinology, Diabetes & Metabolism
DX: M81.0 Age-related osteoporosis without current pathological fracture (principal)
CPT/HCPCS: 80069; 83970; 84443

== ENCOUNTER → 2022-07-12 15:27 | Outpatient (CLI) | payer MEDICARE, SELFPAY | PROVIDERS: PCP Physician Assistant; Referring Provider Internal Medicine Endocrinology, Diabetes & Metabolism; Visit Provider Internal Medicine Endocrinology, Diabetes & Metabolism | DX: M81.8 Other osteoporosis without current pathological fracture (principal); Z13.820 Encounter for screening for osteoporosis; Z78.0 Asymptomatic menopausal state; Z79.83 Long term (current) use of bisphosphonates; Z92.23 Personal history of estrogen therapy | CPT/HCPCS: 77080; 77081 ==

== ENCOUNTER → 2022-08-08 13:42 | Outpatient (CLI) | payer MEDICARE, SELFPAY ==
[2022-08-08 21:18] LABS: Hemoglobin 12.3 g/dL (12.0-16.0); Mean Corpuscular HGB Conc 34.1 % (30-36); Mean Corpuscular Hemoglobin 33.5 PG (26-34); Mean Corpuscular Volume 98.2 fL (80-100); Platelet Count 274 X10^3/uL (150-400); Red Blood Cell Count 3.67 X10^6/uL (4.0-5.2); Red Cell Distribution Width 13.6 % (11.6-14.8); White Blood Cell Count 6.6 X10^3/uL (4.5-11.0)
[2022-08-08 21:45] LABS: C-Reactive Protein Quant < 0.5 mg/dL (<1.0)
[2022-08-08 22:06] LABS: Add Manual Diff / Slide Review YES
[2022-08-08 22:29] LABS: Erythrocyte Sedimentation Rate 35 MM/HR (0-20)
[2022-08-08 22:53] LABS: Neutrophils Absolute Manual 3168 /uL (3000-5900); Total Cells Counted 100
[2022-08-08 22:54] LABS: Hypersegmented Neutrophils 1+; Platelet Estimate Adeq; RBC Morphology Normal Morphology
[2022-08-11 08:37] LABS: Immunoglobulin E 1089 IU/mL (6-495)
== END ==
PROVIDERS: PCP Physician Assistant; Visit Provider Allergy & Immunology
DX: R05.3 Chronic cough (principal)
CPT/HCPCS: 82785; 85007; 85025; 85651; 86140

== ENCOUNTER → 2022-10-03 13:40 | Outpatient (CLI) | payer MEDICARE, SELFPAY ==
[2022-10-03 19:12] LABS: BUN Creatinine Ratio 34.4 (6-22); Blood Urea Nitrogen 21 mg/dL (7-17); Calcium 10.3 mg/dL (8.4-10.2); Carbon Dioxide 29 mmol/L (22-32); Chloride 99 mmol/L (98-107); Estimated Glomerular Filt Rate > 60 mL/min (>60); Glucose 78 mg/dL (80-110); HEMOLYSIS < 15 (0-50); Potassium 4.3 mmol/L (3.4-5.1); Sodium 136 mmol/L (137-145)
== END ==
PROVIDERS: PCP Physician Assistant; Visit Provider Physician Assistant
DX: R05.3 Chronic cough (principal)
CPT/HCPCS: 80048

== ENCOUNTER → 2022-10-07 12:39 | Outpatient (CLI) | payer MEDICARE, SELFPAY ==
--- NOTE | 2022-10-07 12:40 | DI.CT.S_ITS ---
PROCEDURE: CT CHEST W CON INDICATIONS: f/u on nodules, chronic cough TECHNIQUE: After the administration of intravenous contrast, 5 mm thick sections acquired from the pulmonary apices to the posterior costophrenic angles. 1 mm axial lung, 5 mm thick coronal and sagittal reformats and 7 mm axial MIP were acquired. For radiation dose reduction, the following was used: automated exposure control, adjustment of mA and/or kV according to patient size. COMPARISON: [facility], CT, CT CHEST W CON, 01/25/2022, 8:53. FINDINGS: Image quality: Excellent. Lungs and pleura: Accounting for differences in measuring technique, there has been no significant change in size of the 6 mm and 4 mm solid nodules in the lateral right lower lobe. (3/2 injury). Stable branching nodularity in the right lower lobe, a dominant central lobular nodule measuring 5 mm (3/237). Mediastinum: Heart size is normal. No pericardial effusion. No mediastinal or hilar adenopathy by size criteria. Thoracic aorta and central pulmonary arteries are normal in size. Esophagus is normal in caliber. No hiatal hernia. Bones and chest wall: No suspicious bony lesions. No vertebral body compression fractures. No axillary or supraclavicular adenopathy by size criteria. Thyroid gland is unremarkable . Abdomen: Visualized upper abdominal solid organs appear normal. Upper abdominal bowel loops are normal in caliber. IMPRESSION: Stable pulmonary nodules, indeterminate in the setting of malignancy, although no interval growth favors a benign etiology. Dictated by: Pritesh Sales M.D. on 10/07/2022 at 13:49 Approved by: Pritesh Sales M.D. on 10/07/2022 at 13:55
== END ==
PROVIDERS: PCP Physician Assistant; Referring Provider Physician Assistant; Visit Provider Physician Assistant
DX: R05.3 Chronic cough; R91.8 Other nonspecific abnormal finding of lung field
CPT/HCPCS: 71260

== ENCOUNTER → 2022-11-30 14:23 | Outpatient (CLI) | payer MEDICARE, SELFPAY ==
[2022-11-30 20:10] LABS: BUN Creatinine Ratio 36.2 (6-22); Blood Urea Nitrogen 25 mg/dL (7-17); Calcium 10.2 mg/dL (8.4-10.2); Carbon Dioxide 28 mmol/L (22-32); Chloride 101 mmol/L (98-107); Estimated Glomerular Filt Rate > 60 mL/min (>60); Glucose 82 mg/dL (80-110); HEMOLYSIS < 15 (0-50); Potassium 4.4 mmol/L (3.4-5.1); Sodium 134 mmol/L (137-145)
[2022-11-30 20:24] LABS: Vitamin D 25 Hydroxy (D3) 44.1 ng/mL (30.0-100.0)
[2022-12-04 07:47] LABS: Parathyroid Hormone Int 96 pg/mL (15-65)
== END ==
PROVIDERS: PCP Physician Assistant; Visit Provider Internal Medicine Endocrinology, Diabetes & Metabolism
DX: M81.8 Other osteoporosis without current pathological fracture (principal)
CPT/HCPCS: 80048; 82306; 83970

== ENCOUNTER → 2023-01-23 13:22 | Outpatient (CLI) | payer MEDICARE, SELFPAY ==
[2023-01-23 19:40] LABS: Creatinine Urine Random 48.7 mg/dL
[2023-01-23 20:29] LABS: Collection Time Urine 24 Hours; Creatinine 24 Hour Urine 584 mg/day (800-1800); Total Volume Urine 1200 mL
== END ==
PROVIDERS: PCP Physician Assistant
DX: E21.3 Hyperparathyroidism, unspecified (principal); M81.0 Age-related osteoporosis without current pathological fracture
CPT/HCPCS: 82570

== ENCOUNTER → 2023-04-20 13:57 | Outpatient (CLI) | payer MEDICARE, SELFPAY ==
[2023-04-20 19:27] LABS: BUN Creatinine Ratio 42.1 (6-22); Blood Urea Nitrogen 24 mg/dL (7-17); Calcium 10.8 mg/dL (8.4-10.2); Carbon Dioxide 24 mmol/L (22-32); Chloride 99 mmol/L (98-107); Estimated Glomerular Filt Rate > 60 mL/min (>60); Glucose 87 mg/dL (80-110); Potassium 4.8 mmol/L (3.4-5.1); Sodium 132 mmol/L (137-145)
[2023-04-20 19:59] LABS: HEMOLYSIS 64 (0-50)
[2023-04-22 13:36] LABS: Parathyroid Hormone Int 78 pg/mL (15-65)
== END ==
PROVIDERS: PCP Family Medicine; Visit Provider Internal Medicine Endocrinology, Diabetes & Metabolism
DX: M81.0 Age-related osteoporosis without current pathological fracture (principal); E21.3 Hyperparathyroidism, unspecified
CPT/HCPCS: 80048; 83970

== ENCOUNTER → 2023-05-09 13:13 | Outpatient (CLI) | payer MEDICARE, SELFPAY | PROVIDERS: PCP Family Medicine | DX: E21.3 Hyperparathyroidism, unspecified (principal) ==

== ENCOUNTER → 2023-06-08 16:49 | Outpatient (CLI) | payer MEDICARE, SELFPAY ==
--- NOTE | 2023-06-08 | DI.US.S_ITS ---
PROCEDURE: US THYROID INDICATIONS: HYPERPARATHYROIDISM TECHNIQUE: Real-time scanning was performed of the thyroid gland, with image documentation. COMPARISON: None. FINDINGS: Right: Thyroid lobe measures 3.6 x 0.9 x 1.0 cm, and is homogeneous in echotexture. Left: Thyroid lobe measures 3.0 x 0.9 x 0.9 cm, and is homogenous in echotexture. Isthmus: 1.4 mm thick. Nodule number: 1 Location: Left mid Size: 0.4 x 0.3 x 0.5 cm. Composition: Predominantly solid Echogenicity: Hypoechoic Shape: wider than tall. Margins: Smooth Echogenic foci: None Total points: 4 ACR TI-RADS category: 4 Nodule number: 2 Location: Right mid Size: 0.4 x 0.3 x 0.3 cm. Composition: Mixed Echogenicity: Hypoechoic Shape: wider than tall. Margins: Smooth Echogenic foci: None Total points: 3 ACR TI-RADS category: 3 Nodule number: 3 Location: Right inferior Size: 0.6 x 0.3 x 0.3 cm. Composition: Cystic Echogenicity: Hypoechoic Shape: wider than tall. Margins: Smooth Echogenic foci: none Total points: 2 ACR TI-RADS category: 2 IMPRESSION: Lesion 1 is considered category 4. Secondary to size, no additional follow-up. Lesion 2 is considered category 3. Secondary to size, no additional follow-up. Lesion 3 is considered category 2. No additional follow-up. ACR TI-RADS definitions and recommendations: TI-RADS 1 (benign): 0 points. FNA not needed. TI-RADS 2 (not suspicious): 2 points. FNA not needed. TI-RADS 3 (mildly suspicious): 3 points. * FNA if 2.5 cm or larger, follow up if 1.5 cm or larger (at 1, 3, and 5 years). TI-RADS 4 (moderately suspicious): 4-6 points. * FNA if 1.5 cm or larger, follow up if 1 cm or larger (at 1, 2, 3, and 5 years). TI-RADS 5 (highly suspicious): 7 points or more. * FNA if 1 cm or larger, follow up if 0.5 cm or larger (every year for 5 years). Dictated by: Arin Maldonado M.D. on 06/09/2023 at 15:14 Approved by: Arin Maldonado M.D. on 06/09/2023 at 15:26
== END ==
PROVIDERS: PCP Family Medicine
DX: E21.3 Hyperparathyroidism, unspecified (principal); E04.2 Nontoxic multinodular goiter
CPT/HCPCS: 76536

== ENCOUNTER → 2023-10-23 14:35 | Outpatient (CLI) | payer MEDICARE, SELFPAY ==
[2023-10-23 19:42] LABS: Add Manual Diff / Slide Review NO; Basophils Absolute Auto 100 /uL (0-100); Eosinophils Absolute Auto 100 /uL (0-450); Eosinophils Percent Auto 1.1 % (2-4); Hematocrit 34.2 % (36-46); Hemoglobin 11.6 g/dL (12.0-16.0); Lymphocytes Absolute Auto 1400 /uL (1100-4500); Lymphocytes Percent Auto 20.9 % (25-40); Mean Corpuscular Hemoglobin 35.7 PG (26-34); Mean Corpuscular Volume 105.3 fL (80-100); Monocytes Absolute Auto 1000 /uL (0-900); Monocytes Percent Auto 14.5 % (3-14); Neutrophils Absolute Auto 4200 /uL (1500-7000); Neutrophils Percent Auto 62.5 % (50-75); Platelet Count 203 X10^3/uL (150-400); Red Blood Cell Count 3.25 X10^6/uL (4.0-5.2); Red Cell Distribution Width 13.3 % (11.6-14.8); White Blood Cell Count 6.8 X10^3/uL (4.5-11.0)
[2023-10-23 19:48] LABS: Alanine Aminotransferase 31 IU/L (<35); Albumin 3.8 g/dL (3.5-5.0); Albumin Globulin Ratio 1.3 (1.0-2.8); Alkaline Phosphatase 56 U/L (38-126); Aspartate Aminotransferase 41 IU/L (14-36); BUN Creatinine Ratio 45.5 (6-22); Bilirubin Total 0.6 mg/dL (0.2-1.3); Blood Urea Nitrogen 25 mg/dL (7-17); Calcium 10.5 mg/dL (8.4-10.2); Carbon Dioxide 26 mmol/L (22-32); Chloride 103 mmol/L (98-107); Estimated Glomerular Filt Rate > 60 mL/min (>60); Glucose 89 mg/dL (80-110); HEMOLYSIS 16 (0-50); Sodium 134 mmol/L (137-145); Total Protein 6.8 g/dL (6.3-8.2)
[2023-10-25 03:52] LABS: Immunoglobulin A 126 mg/dL (64-422); Immunoglobulin G, Quantitative 1139 mg/dL (586-1602); Immunoglobulin M, Quantitative 46 mg/dL (26-217)
[2023-10-25 18:18] LABS: Free Kappa Lt Chains, Serum 29.1 mg/L (3.3-19.4); Free Lambda Lt Chains,Serum 7.4 mg/L (5.7-26.3)
[2023-10-26 13:58] LABS: Albumin 3.7 g/dL (2.9-4.4); Alpha 1 Globulin 0.3 g/dL (0.0-0.4); Alpha 2 Globulin 0.7 g/dL (0.4-1.0); Beta 1 Globulin 0.9 g/dL (0.7-1.3); Gamma Globulin 1.1 g/dL (0.4-1.8); Protein, Total 6.7 g/dL (6.0-8.5)
[2023-11-06 08:31] LABS: PDF SEE SCANNED RESULTS
== END ==
PROVIDERS: PCP Family Medicine; Visit Provider Physician Assistant
DX: D47.2 Monoclonal gammopathy (principal)
CPT/HCPCS: 80053; 82784; 83883; 84155; 84165; 85025

== ENCOUNTER → 2024-02-22 14:32 | Outpatient (CLI) | payer MEDICARE, SELFPAY ==
[2024-02-22 20:28] LABS: BUN Creatinine Ratio 31.3 (6-22); Blood Urea Nitrogen 21 mg/dL (7-17); Calcium 8.9 mg/dL (8.4-10.2); Carbon Dioxide 26 mmol/L (22-32); Chloride 100 mmol/L (98-107); Estimated Glomerular Filt Rate > 60 mL/min (>60); Glucose 83 mg/dL (80-110); HEMOLYSIS < 15 (0-50); Potassium 4.2 mmol/L (3.4-5.1); Sodium 133 mmol/L (137-145)
[2024-02-22 20:43] LABS: Vitamin D 25 Hydroxy (D3) 44.4 ng/mL (30.0-100.0)
[2024-02-27 07:41] LABS: Parathyroid Hormone Int 40 pg/mL (15-65)
== END ==
PROVIDERS: PCP Family Medicine; Referring Provider Internal Medicine Endocrinology, Diabetes & Metabolism; Visit Provider Internal Medicine Endocrinology, Diabetes & Metabolism
DX: E21.3 Hyperparathyroidism, unspecified (principal); Z98.890 Other specified postprocedural states; Z90.89 Acquired absence of other organs
CPT/HCPCS: 80048; 82306; 83970

== ENCOUNTER → 2024-05-14 15:09 | Outpatient (CLI) | payer MEDICARE, SELFPAY ==
[2024-05-14 16:14] LABS: Influenza A - CEPHEID Flu A NEGATIVE (NEGATIVE); Influenza B - CEPHEID Flu B NEGATIVE (NEGATIVE); Respiratory Syncytial Virus Negative (Negative)
[2024-05-14 16:17] LABS: COVID-19 CEPHEID 4-PLEX PCR Negative (Negative)
== END ==
PROVIDERS: PCP Family Medicine; Visit Provider Physician Assistant Surgical
DX: J02.9 Acute pharyngitis, unspecified (principal); Z20.828 Contact with and (suspected) exposure to other viral communicable diseases
CPT/HCPCS: 0241U; 87070

== ENCOUNTER → 2024-09-17 14:50 | Outpatient (CLI) | payer MEDICARE, SELFPAY ==
--- NOTE | 2024-09-17 14:53 | DI.RAD.S_ITS ---
PROCEDURE: XR DEXA AXIAL SKELETON INDICATIONS: screening COMPARISON: [facility], , XR DEXA AXIAL SKELETON, 07/12/2022, 15:50. FINDINGS: Lumbar Spine: Bone mineral density is 0.749 g/cm2, T score -2.1. Left Femoral Neck: Bone mineral density 0.511 (previously 0.522) g/cm2, T score -3.0 (previously-2.9) Left Hip: Bone mineral density is 0.607 (previously 0.616) g/cm2, T score -2.7 (previously-2.7). Fracture Risk Calculation (when applicable): 10-year fracture risk of a major osteoporotic fracture 16 percent and of a hip fracture 7 percent. (T score greater or equal to -1.0 to: NORMAL) (T score from -1.1 to -2.4: OSTEOPENIA) (T score less than or equal to -2.5: OSTEOPOROSIS) IMPRESSION: Osteoporosis---recommend repeat DEXA in 2 years or less for reassessment of response to treatment. Follow-up guidelines as follows: Osteoporosis: Consider a repeat DEXA and Vertebral Fracture Assessment (VFA) exam in 2 years or sooner if medically necessary, to reassess this patient's status. Osteopenia: Consider a repeat DEXA in 2-3 years to reassess this patient's status, or if there is a new clinical indication. Normal: Consider a repeat DEXA in 5 years or sooner, or if there is a new clinical indication. All treatment decisions require clinical judgment and consideration of individual patient factors, including patient preferences, comorbidities, previous drug use, risk factors not captured in the FRAX model (e.g., frailty, falls, vitamin D deficiency, increased bone turnover, interval significant decline in bone density ) and possible under- or over-estimation of fracture risk by FRAX. In addition, the NOF Guide recommends that FDA-approved medical therapies be considered in postmenopausal women and men age >= 50 years with a: * Hip or vertebral (clinical or morphometric) fracture * T-score of <=-2.5 at the spine or hip * Ten-year fracture probability by FRAX of >= 3% for hip fracture or >=20% for major osteoporotic fracture. Dictated by: Endy Elkins M.D. on 09/17/2024 at 22:40 Approved by: Endy Elkins M.D. on 09/17/2024 at 22:42
--- NOTE | 2024-09-17 14:53 | DI.MG.S_ITS ---
BILATERAL DIGITAL SCREENING MAMMOGRAM 3D/2D WITH CAD: 09/17/2024 CLINICAL: Routine screening. Comparison is made to exams dated: 01/25/2022 mammogram, 07/03/2020 mammogram, and 02/15/2019 mammogram - [facility]. The breasts are extremely dense, which lowers the sensitivity of mammography (category d />75% glandular tissue). Current study was also evaluated with a Computer Aided Detection (CAD) system. No significant masses, calcifications, or other findings are seen in either breast. There has been no significant interval change. IMPRESSION: NEGATIVE There is no mammographic evidence of malignancy. A 1 year screening mammogram is recommended. Based on the Tyrer Cuzick model (a risk assessment model) the patient's lifetime risk is 1.6% and her 10 year risk is 0.0%. According to the ACR, ACS, and NCCN guidelines, an annual breast MRI exam along with mammogram is recommended if the patient's lifetime risk is 20% or greater. This exam was interpreted at Station ID: [id number]. NOTE: For mammograms, a report in lay terms will be sent to the patient. Approximately 15% of breast malignancies will not be visualized mammographically. In the management of a palpable breast mass, a negative mammogram must not discourage biopsy of a clinically suspicious lesion. Electronically Signed By: Cait Angelo M.D., Ph.D. [email or web address]:09/18/2024 22:17:32 letter sent: Normal Exam ACR BI-RADS Category 1: Negative
== END ==
PROVIDERS: PCP Family Medicine; Referring Provider Family Medicine; Visit Provider Family Medicine
DX: M81.0 Age-related osteoporosis without current pathological fracture (principal); Z12.31 Encounter for screening mammogram for malignant neoplasm of breast; R92.343 Mammographic extreme density, bilateral breasts; Z78.0 Asymptomatic menopausal state; E21.3 Hyperparathyroidism, unspecified; M11.20 Other chondrocalcinosis, unspecified site; M17.11 Unilateral primary osteoarthritis, right knee
CPT/HCPCS: 77063; 77067; 77080

== ENCOUNTER → 2024-09-25 11:32 | Outpatient (CLI) | payer MEDICARE, SELFPAY ==
[2024-09-25 19:25] LABS: Add Manual Diff / Slide Review NO; Basophils Absolute Auto 100 /uL (0-100); Basophils Percent Auto 1.3 % (0-2); Eosinophils Absolute Auto 100 /uL (0-450); Eosinophils Percent Auto 1.7 % (2-4); Hematocrit 36.6 % (36-46); Hemoglobin 12.2 g/dL (12.0-16.0); Lymphocytes Absolute Auto 1200 /uL (1100-4500); Lymphocytes Percent Auto 28.1 % (25-40); Mean Corpuscular HGB Conc 33.4 % (30-36); Mean Corpuscular Hemoglobin 34.4 PG (26-34); Mean Corpuscular Volume 103.2 fL (80-100); Monocytes Absolute Auto 700 /uL (0-900); Monocytes Percent Auto 16.5 % (3-14); Neutrophils Absolute Auto 2200 /uL (1500-7000); Neutrophils Percent Auto 52.4 % (50-75); Platelet Count 201 X10^3/uL (150-400); Red Blood Cell Count 3.55 X10^6/uL (4.0-5.2); Red Cell Distribution Width 13.2 % (11.6-14.8); White Blood Cell Count 4.3 X10^3/uL (4.5-11.0)
[2024-09-25 19:40] LABS: Alanine Aminotransferase 32 IU/L (<35); Albumin 4.1 g/dL (3.5-5.0); Albumin Globulin Ratio 1.6 (1.0-2.8); Alkaline Phosphatase 63 U/L (38-126); Aspartate Aminotransferase 43 IU/L (14-36); BUN Creatinine Ratio 35.8 (6-22); Bilirubin Total 0.4 mg/dL (0.2-1.3); Blood Urea Nitrogen 24 mg/dL (7-17); Calcium 9.2 mg/dL (8.4-10.2); Carbon Dioxide 26 mmol/L (22-32); Chloride 99 mmol/L (98-107); Estimated Glomerular Filt Rate > 60 mL/min (>60); Globulin 2.5 g/dL (1.7-4.1); Glucose 72 mg/dL (80-110); HEMOLYSIS < 15 (0-50); Potassium 4.2 mmol/L (3.4-5.1); Sodium 133 mmol/L (137-145); Total Protein 6.6 g/dL (6.3-8.2)
[2024-09-25 20:03] LABS: Thyroid Stimulating Hormone 2.25 uIU/mL (0.47-4.68)
[2024-09-25 20:12] LABS: Ferritin 19 ng/mL (11-264)
[2024-09-25 20:23] LABS: Vitamin B12 589 pg/mL (239-931)
[2024-09-27 18:08] LABS: Free Kappa Lt Chains, Serum 30.5 mg/L (3.3-19.4); Free Lambda Lt Chains,Serum 9.2 mg/L (5.7-26.3)
== END ==
PROVIDERS: PCP Family Medicine; Visit Provider Family Medicine
DX: D64.9 Anemia, unspecified (principal); D47.2 Monoclonal gammopathy
CPT/HCPCS: 80053; 82607; 82728; 83883; 84155; 84165; 84443; 85025

== ENCOUNTER → 2024-11-08 12:20 | Outpatient (CLI) | payer MEDICARE, SELFPAY ==
[2024-11-08 19:03] LABS: BUN Creatinine Ratio 31.8 (6-22); Blood Urea Nitrogen 21 mg/dL (7-17); Calcium 9.2 mg/dL (8.4-10.2); Carbon Dioxide 25 mmol/L (22-32); Chloride 99 mmol/L (98-107); Estimated Glomerular Filt Rate > 60 mL/min (>60); Glucose 71 mg/dL (80-110); HEMOLYSIS < 15 (0-50); Sodium 133 mmol/L (137-145)
== END ==
PROVIDERS: PCP Family Medicine; Visit Provider Internal Medicine Endocrinology, Diabetes & Metabolism
DX: E21.3 Hyperparathyroidism, unspecified (principal); Z98.890 Other specified postprocedural states; Z90.89 Acquired absence of other organs
CPT/HCPCS: 80048

== ENCOUNTER → 2024-11-11 16:17 | Outpatient (CLI) | payer MEDICARE, SELFPAY | PROVIDERS: PCP Family Medicine; Visit Provider Nurse Practitioner Adult Health | DX: R39.89 Other symptoms and signs involving the genitourinary system (principal) | CPT/HCPCS: 87086 ==